=== PATIENT | female | born 1960 | race Caucasian/White ===

== ENCOUNTER 2019-10-04 05:35 | Inpatient (IN) ==
[2019-10-04] MEDS ORDERED: LORazepam 2 MG/1 ML VIAL ONE (08:45)
[2019-10-04] MEDS ORDERED: MORPHINE 4 MG/1 ML VIAL IV PRN (08:49)
[2019-10-04] MEDS ORDERED: ONDANSETRON 4 MG/2 ML VIAL IV PRN (08:49)
[2019-10-04] MEDS ORDERED: ALBUTEROL 2.5 MG/3 ML NEB RESP TX PRN ×2 (08:49)
[2019-10-04] MEDS ORDERED: LACTATED RINGERS 1,000 ML IV ONE (08:57)
[2019-10-04] MEDS ORDERED: LORazepam 2 MG/1 ML VIAL IV ONE (09:00)
[2019-10-04] MEDS ORDERED: NOREPINEPHRINE 4 MG/4 ML VIAL IV ONE (09:04)
[2019-10-04] MEDS ORDERED: SODIUM CHLORIDE 0.9% 1,000 ML IV ONE (09:05)
[2019-10-04] MEDS: NOREPINEPHRINE 8 MG in SODIUM CHLORIDE 0.9% 242 ML IV SCH ×2 (09:12→20:37)
[2019-10-04 09:25] LABS: Basophils % 0.3 % (0.0-0.8); Hematocrit 37.8 VOL% (35.7-47.0); Hemoglobin 12.2 GM/DL (12.0-16.0); Lymphocytes # 0.4 10*3/uL (1.4-4.0); Lymphocytes % 13.1 % (21.3-54.2); Mean Corpuscular HGB Conc 32.3 GM/DL (32-36); Mean Corpuscular Volume 83.3 FL (87-102); Mean Platelet Volume 11.2 FL (9.6-12.0); Monocytes % 11.5 % (1.7-12.7); Neutrophils % 75.1 % (38.7-73.9); Platelet Count 180 T/CUMM (130-400); Red Blood Count 4.54 MC/CUMM (3.8-5.5); Red Cell Distribution Width 13.8 % (9.3-17.3); White Blood Count 3.1 T/CUMM (4-12)
[2019-10-04 09:31] LABS: ABG Base Excess -6.6 MMOL/L (-2.5-2.5); ABG HCO3 19.1 MMOL/L (20-26); ABG Oxygen Saturation 99.8 % (95-100); ABG PCO2 47.2 MM HG (35-48); ABG PH 7.253 (7.35-7.45); ABG TCO2 18.7 MMOL/L (23-27); Pt O2 Delivery Device Ventilator
[2019-10-04 09:43] LABS: Albumin 3.2 G/DL (3.4-5.0); Calcium 8.6 MG/DL (8.5-10.1); Osmolality,Calculated 291.7 MOS/KG (273-304); Total Protein 6.3 G/DL (6.4-8.3)
[2019-10-04 10:16] LABS: Anisocytosis Slight; Band Neutrophils 27 % (0-10); Eosinophils 1 % (0-10); Lymphocytes 14 % (20-55); Macrocytosis Slight; Metamyelocytes 1 %; Platelet Estimate Normal; Segmented Neutrophils 45 % (50-85); Total Cells Counted 100
[2019-10-04] MEDS: LACTATED RINGERS 1,000 ML IV SCH ×3 (10:45→19:38)
[2019-10-04] MEDS ORDERED: INFLUENZA VIRUS VACCINE 0.5 ML SYRINGE IM ONE (10:54)
[2019-10-04] MEDS: PANTOPRAZOLE 40 MG VIAL IV SCH (10:57)
[2019-10-04] MEDS: ENOXAPARIN 40 MG/0.4 ML SYRINGE SUBCUT SCH (11:01)
[2019-10-04] MEDS: MIDAZOLAM 100 MG in SODIUM CHLORIDE 0.9% 80 ML IV PRN (11:44)
[2019-10-04] MEDS: POTASSIUM CHLORIDE RIDER 20 MEQ in PREMIX 1 EACH IV SCH ×3 (11:45→16:11)
[2019-10-04] MEDS: fentaNYL INJ 1,250 MCG in SODIUM CHLORIDE 0.9% 225 ML IV PRN (11:46)
[2019-10-04] MEDS: MAGNESIUM SULF RIDER 2 GM in PREMIX 1 EACH IV PRN ×2 (11:46→13:46)
[2019-10-04] MEDS: INSULIN REGULAR 100 UNIT/ML SUBCUT SCH ×3 (12:39→23:55)
[2019-10-04] MEDS: CLINDAMYCIN INJ 600 MG in PREMIX 1 EACH IV SCH ×2 (14:25→22:25)
[2019-10-04] MEDS: ALBUTEROL/IPRATROPIUM 3 ML NEB RESP TX SCH ×2 (14:47→20:12)
[2019-10-04] MEDS: LEVOFLOXACIN INJ 750 MG in PREMIX 1 EACH IV SCH (15:00)
[2019-10-04] MEDS: INSULIN GLARGINE 100 UNIT/ML SUBCUT SCH (15:05)
[2019-10-04] MEDS: ACETAMINOPHEN 325 MG TABLET PO PRN (16:09)
[2019-10-05] MEDS: ALBUTEROL/IPRATROPIUM 3 ML NEB RESP TX SCH ×4 (01:02→20:10)
[2019-10-05] MEDS: LACTATED RINGERS 1,000 ML IV SCH ×5 (01:24→23:47)
[2019-10-05 04:39] LABS: Basophils # 0.1 10*3/uL (0.0-0.2); Basophils % 0.5 % (0.0-0.8); Eosinophils % 0.3 % (0.00-10.9); Hematocrit 35.7 VOL% (35.7-47.0); Hemoglobin 11.4 GM/DL (12.0-16.0); Immature Granulocytes % 0.8 %; Immature Granulocytes Absolute 0.09 #; Lymphocytes # 1.2 10*3/uL (1.4-4.0); Mean Corpuscular HGB Conc 31.9 GM/DL (32-36); Mean Platelet Volume 10.9 FL (9.6-12.0); Monocytes % 5.8 % (1.7-12.7); Neutrophils % 81.6 % (38.7-73.9); Platelet Count 180 T/CUMM (130-400); Red Cell Distribution Width 14.3 % (9.3-17.3); White Blood Count 10.8 T/CUMM (4-12)
[2019-10-05 04:52] LABS: ABG Base Excess -2.3 MMOL/L (-2.5-2.5); ABG HCO3 22.5 MMOL/L (20-26); ABG Oxygen Saturation 98.2 % (95-100); ABG PCO2 44.7 MM HG (35-48); ABG PH 7.332 (7.35-7.45); ABG TCO2 21.3 MMOL/L (23-27); Allen Test Positive; Pt O2 Delivery Device Ventilator
[2019-10-05 04:56] LABS: Calcium 8.2 MG/DL (8.5-10.1); Osmolality,Calculated 289.3 MOS/KG (273-304)
[2019-10-05 05:16] LABS: Band Neutrophils 8 % (0-10); Hypochromasia 1+; Lymphocytes 16 % (20-55); Platelet Estimate Adequate; Segmented Neutrophils 72 % (50-85); Total Cells Counted 100
[2019-10-05 05:17] LABS: Macrocytosis Slight
[2019-10-05] MEDS: CLINDAMYCIN INJ 600 MG in PREMIX 1 EACH IV SCH ×3 (06:17→21:50)
[2019-10-05] MEDS: INSULIN REGULAR 100 UNIT/ML SUBCUT SCH ×4 (06:17→23:59)
[2019-10-05] MEDS: MIDAZOLAM 100 MG in SODIUM CHLORIDE 0.9% 80 ML IV PRN ×2 (06:27→23:47)
[2019-10-05] MEDS: PANTOPRAZOLE 40 MG VIAL IV SCH (09:16)
[2019-10-05] MEDS: CALCIUM (CARBONATE)/VITAMIN D 600 MG-400 UNIT TABLET PO SCH (09:16)
[2019-10-05] MEDS: ASPIRIN CHEW 81 MG TABLET PO SCH (09:16)
[2019-10-05] MEDS: ENOXAPARIN 40 MG/0.4 ML SYRINGE SUBCUT SCH (09:17)
[2019-10-05] MEDS: ATORVASTATIN 10 MG TABLET PO SCH (09:17)
[2019-10-05] MEDS: INSULIN GLARGINE 100 UNIT/ML SUBCUT SCH (09:17)
[2019-10-05 13:21] LABS: Allen Test Positive; Pt O2 Delivery Device Ventilator
[2019-10-05 13:24] LABS: ABG Base Excess 0.9 MMOL/L (-2.5-2.5); ABG HCO3 25.3 MMOL/L (20-26); ABG Oxygen Saturation 99.4 % (95-100); ABG PCO2 39.8 MM HG (35-48); ABG PH 7.414 (7.35-7.45)
[2019-10-05] MEDS: LEVOFLOXACIN INJ 750 MG in PREMIX 1 EACH IV SCH (14:19)
[2019-10-05] MEDS: NOREPINEPHRINE 8 MG in SODIUM CHLORIDE 0.9% 242 ML IV SCH (14:30)
[2019-10-05] MEDS ORDERED: DEXTROSE 10% 250 ML BAG IV PRN (17:38)
[2019-10-05] MEDS ORDERED: GLUCAGON 1 MG VIAL IM PRN (17:38)
[2019-10-06] MEDS: LACTATED RINGERS 1,000 ML IV SCH ×2 (01:10→11:07)
[2019-10-06] MEDS: ALBUTEROL/IPRATROPIUM 3 ML NEB RESP TX SCH ×4 (01:55→19:42)
[2019-10-06 04:40] LABS: Basophils % 0.4 % (0.0-0.8); Eosinophils # 0.1 10*3/uL (0.0-0.87); Eosinophils % 1.9 % (0.00-10.9); Hematocrit 28.7 VOL% (35.7-47.0); Immature Granulocytes % 2.2 %; Immature Granulocytes Absolute 0.15 #; Lymphocytes # 0.9 10*3/uL (1.4-4.0); Lymphocytes % 12.8 % (21.3-54.2); Mean Corpuscular HGB Conc 32.4 GM/DL (32-36); Mean Corpuscular Volume 83.7 FL (87-102); Mean Platelet Volume 11.1 FL (9.6-12.0); Neutrophils % 76.7 % (38.7-73.9); Red Blood Count 3.43 MC/CUMM (3.8-5.5); Red Cell Distribution Width 14.5 % (9.3-17.3); White Blood Count 6.8 T/CUMM (4-12)
[2019-10-06 04:42] LABS: Hemoglobin 9.3 GM/DL (12.0-16.0); Platelet Count 130 T/CUMM (130-400)
[2019-10-06 04:48] LABS: Allen Test Positive; Pt O2 Delivery Device Ventilator
[2019-10-06 04:49] LABS: ABG Base Excess 2.5 MMOL/L (-2.5-2.5); ABG HCO3 26.7 MMOL/L (20-26); ABG Oxygen Saturation 98.9 % (95-100); ABG PCO2 38.4 MM HG (35-48); ABG PH 7.448 (7.35-7.45); ABG TCO2 24.3 MMOL/L (23-27)
[2019-10-06 04:49] LABS: Albumin 2.3 G/DL (3.4-5.0); Bilirubin,Total 1.8 MG/DL (0.2-1.0); Calcium 8.6 MG/DL (8.5-10.1); Osmolality,Calculated 276.7 MOS/KG (273-304); Total Protein 5.6 G/DL (6.4-8.3)
[2019-10-06] MEDS: INSULIN REGULAR 100 UNIT/ML SUBCUT SCH ×3 (05:35→18:02)
[2019-10-06 05:53] LABS: Band Neutrophils 6 % (0-10); Eosinophils 2 % (0-10); Hypochromasia 1+; Lymphocytes 10 % (20-55); Macrocytosis Slight; Platelet Estimate Normal; Segmented Neutrophils 78 % (50-85); Total Cells Counted 100
[2019-10-06] MEDS: CLINDAMYCIN INJ 600 MG in PREMIX 1 EACH IV SCH ×3 (06:50→21:12)
[2019-10-06] MEDS: PANTOPRAZOLE 40 MG VIAL IV SCH (08:19)
[2019-10-06] MEDS: ENOXAPARIN 40 MG/0.4 ML SYRINGE SUBCUT SCH (08:19)
[2019-10-06] MEDS: ASPIRIN CHEW 81 MG TABLET PO SCH (08:19)
[2019-10-06] MEDS: CALCIUM (CARBONATE)/VITAMIN D 600 MG-400 UNIT TABLET PO SCH (08:19)
[2019-10-06] MEDS: ATORVASTATIN 10 MG TABLET PO SCH (08:19)
[2019-10-06] MEDS: INSULIN GLARGINE 100 UNIT/ML SUBCUT SCH (08:19)
[2019-10-06] MEDS: MAGNESIUM SULF RIDER 2 GM in PREMIX 1 EACH IV PRN (08:27)
[2019-10-06] MEDS: DOCUSATE SODIUM 100 MG/10 ML UDCUP PO SCH ×2 (12:07→21:10)
[2019-10-06] MEDS: NOREPINEPHRINE 8 MG in SODIUM CHLORIDE 0.9% 242 ML IV SCH (13:49)
[2019-10-06] MEDS: LEVOFLOXACIN INJ 750 MG in PREMIX 1 EACH IV SCH (14:39)
[2019-10-06] MEDS: fentaNYL INJ 1,250 MCG in SODIUM CHLORIDE 0.9% 225 ML IV PRN (16:32)
[2019-10-06] MEDS: ACETAMINOPHEN 325 MG TABLET PO PRN (21:10)
[2019-10-07] MEDS: ALBUTEROL/IPRATROPIUM 3 ML NEB RESP TX SCH ×4 (00:20→18:50)
[2019-10-07] MEDS: INSULIN REGULAR 100 UNIT/ML SUBCUT SCH ×4 (00:22→17:22)
[2019-10-07] MEDS: MIDAZOLAM 100 MG in SODIUM CHLORIDE 0.9% 80 ML IV PRN (03:15)
[2019-10-07 04:01] LABS: Allen Test Positive; Pt O2 Delivery Device Ventilator
[2019-10-07 04:03] LABS: ABG Base Excess 3.1 MMOL/L (-2.5-2.5); ABG HCO3 27.2 MMOL/L (20-26); ABG Oxygen Saturation 99.3 % (95-100); ABG PCO2 37.3 MM HG (35-48); ABG PH 7.466 (7.35-7.45); ABG TCO2 24.5 MMOL/L (23-27)
[2019-10-07 04:36] LABS: Basophils % 0.3 % (0.0-0.8); Eosinophils # 0.3 10*3/uL (0.0-0.87); Eosinophils % 3.4 % (0.00-10.9); Hematocrit 28.4 VOL% (35.7-47.0); Immature Granulocytes % 0.5 %; Immature Granulocytes Absolute 0.05 #; Lymphocytes # 1.2 10*3/uL (1.4-4.0); Lymphocytes % 12.5 % (21.3-54.2); Mean Corpuscular HGB Conc 31.7 GM/DL (32-36); Mean Platelet Volume 10.2 FL (9.6-12.0); Monocytes % 7.4 % (1.7-12.7); Neutrophils % 75.9 % (38.7-73.9); Platelet Count 135 T/CUMM (130-400); Red Blood Count 3.38 MC/CUMM (3.8-5.5); Red Cell Distribution Width 14.6 % (9.3-17.3); White Blood Count 9.4 T/CUMM (4-12)
[2019-10-07 04:51] LABS: Albumin 2.3 G/DL (3.4-5.0); Calcium 8.1 MG/DL (8.5-10.1); Osmolality,Calculated 280.5 MOS/KG (273-304); Total Protein 5.9 G/DL (6.4-8.3)
[2019-10-07 04:55] LABS: Atypical Lymphocytes Few; Hypochromasia 1+; Lymphocytes 14 % (20-55); Segmented Neutrophils 78 % (50-85); Total Cells Counted 100
[2019-10-07 04:56] LABS: Microcytosis Slight; Platelet Estimate Adequate
[2019-10-07 05:22] LABS: Prealbumin 8.1 MG/DL (20-40)
[2019-10-07] MEDS: CLINDAMYCIN INJ 600 MG in PREMIX 1 EACH IV SCH ×3 (05:45→21:03)
[2019-10-07] MEDS: MAGNESIUM SULF RIDER 2 GM in PREMIX 1 EACH IV PRN (06:19)
[2019-10-07] MEDS: DOCUSATE SODIUM 100 MG/10 ML UDCUP PO SCH ×2 (08:47→20:43)
[2019-10-07] MEDS: PANTOPRAZOLE 40 MG VIAL IV SCH (08:47)
[2019-10-07] MEDS: INSULIN GLARGINE 100 UNIT/ML SUBCUT SCH (08:47)
[2019-10-07] MEDS: NOREPINEPHRINE 8 MG in SODIUM CHLORIDE 0.9% 242 ML IV SCH (08:48)
[2019-10-07] MEDS: ASPIRIN CHEW 81 MG TABLET PO SCH (08:48)
[2019-10-07] MEDS: CALCIUM (CARBONATE)/VITAMIN D 600 MG-400 UNIT TABLET PO SCH (08:48)
[2019-10-07] MEDS: ATORVASTATIN 10 MG TABLET PO SCH (08:48)
[2019-10-07] MEDS: ENOXAPARIN 40 MG/0.4 ML SYRINGE SUBCUT SCH (08:49)
[2019-10-07] MEDS: LEVOFLOXACIN INJ 750 MG in PREMIX 1 EACH IV SCH (14:42)
[2019-10-07] MEDS ORDERED: cefTRIAXone 1,000 MG in SYRINGE 1 EACH IV SCH (16:00)
[2019-10-07] MEDS: DEXMEDETOMIDINE 200 MCG in SODIUM CHLORIDE 0.9% 48 ML IV PRN ×2 (17:04→22:10)
[2019-10-08] MEDS: INSULIN REGULAR 100 UNIT/ML SUBCUT SCH ×4 (00:25→18:43)
[2019-10-08] MEDS: ALBUTEROL/IPRATROPIUM 3 ML NEB RESP TX SCH ×4 (01:14→20:00)
[2019-10-08] MEDS: DEXMEDETOMIDINE 200 MCG in SODIUM CHLORIDE 0.9% 48 ML IV PRN ×5 (02:11→22:56)
[2019-10-08 04:43] LABS: ABG Base Excess 2.6 MMOL/L (-2.5-2.5); ABG HCO3 26.7 MMOL/L (20-26); ABG Oxygen Saturation 98.1 % (95-100); ABG PCO2 44.7 MM HG (35-48); ABG PH 7.402 (7.35-7.45); ABG TCO2 24.8 MMOL/L (23-27); Allen Test Positive; Pt O2 Delivery Device Ventilator
[2019-10-08 05:03] LABS: Basophils % 0.4 % (0.0-0.8); Eosinophils # 0.2 10*3/uL (0.0-0.87); Eosinophils % 1.9 % (0.00-10.9); Hemoglobin 9.3 GM/DL (12.0-16.0); Immature Granulocytes % 1.6 %; Immature Granulocytes Absolute 0.13 #; Lymphocytes # 0.7 10*3/uL (1.4-4.0); Lymphocytes % 8.9 % (21.3-54.2); Mean Corpuscular Volume 83.6 FL (87-102); Mean Platelet Volume 10.7 FL (9.6-12.0); Monocytes % 10.1 % (1.7-12.7); Neutrophils % 77.1 % (38.7-73.9); Platelet Count 156 T/CUMM (130-400); Red Blood Count 3.59 MC/CUMM (3.8-5.5); Red Cell Distribution Width 14.2 % (9.3-17.3)
[2019-10-08 05:26] LABS: Band Neutrophils 1 % (0-10); Eosinophils 7 % (0-10); Lymphocytes 10 % (20-55); Segmented Neutrophils 70 % (50-85); Total Cells Counted 100
[2019-10-08 05:27] LABS: Hypochromasia 1+; Microcytosis Slight; Platelet Estimate Adequate
[2019-10-08 05:46] LABS: Calcium 8.5 MG/DL (8.5-10.1); Osmolality,Calculated 276.8 MOS/KG (273-304)
[2019-10-08] MEDS: CLINDAMYCIN INJ 600 MG in PREMIX 1 EACH IV SCH (05:51)
[2019-10-08] MEDS: PANTOPRAZOLE 40 MG VIAL IV SCH (09:03)
[2019-10-08] MEDS: DOCUSATE SODIUM 100 MG/10 ML UDCUP PO SCH ×2 (09:03→21:07)
[2019-10-08] MEDS: INSULIN GLARGINE 100 UNIT/ML SUBCUT SCH (09:06)
[2019-10-08] MEDS: ENOXAPARIN 40 MG/0.4 ML SYRINGE SUBCUT SCH (09:06)
[2019-10-08] MEDS: ATORVASTATIN 10 MG TABLET PO SCH (09:07)
[2019-10-08] MEDS: CALCIUM (CARBONATE)/VITAMIN D 600 MG-400 UNIT TABLET PO SCH (09:07)
[2019-10-08] MEDS: ASPIRIN CHEW 81 MG TABLET PO SCH (09:07)
[2019-10-08] MEDS ORDERED: VANCOMYCIN INJ 1,500 MG in SODIUM CHLORIDE 0.9% 500 ML IV ONE (13:30)
[2019-10-08] MEDS: PIPERACILLIN/TAZOBACTAM 3,375 MG in SODIUM CHLORIDE 0.9% 100 ML IV SCH ×2 (15:33→21:07)
[2019-10-08] MEDS: methylPREDNISolone SOD SUC 40 MG/1 ML VIAL IV SCH ×2 (16:00→21:08)
[2019-10-08] MEDS: levETIRAcetam 500 MG TABLET PO SCH (21:07)
[2019-10-09] MEDS: ALBUTEROL/IPRATROPIUM 3 ML NEB RESP TX SCH ×4 (00:20→19:20)
[2019-10-09] MEDS: INSULIN REGULAR 100 UNIT/ML SUBCUT SCH ×5 (00:49→21:50)
[2019-10-09] MEDS: VANCOMYCIN INJ 1,000 MG in SODIUM CHLORIDE 0.9% 250 ML IV SCH ×2 (02:31→13:57)
[2019-10-09] MEDS: DEXMEDETOMIDINE 200 MCG in SODIUM CHLORIDE 0.9% 48 ML IV PRN ×2 (02:34→08:33)
[2019-10-09 04:06] LABS: ABG Base Excess 1.3 MMOL/L (-2.5-2.5); ABG HCO3 25.8 MMOL/L (20-26); ABG Oxygen Saturation 96.7 % (95-100); ABG PCO2 40.4 MM HG (35-48); ABG PH 7.423 (7.35-7.45); ABG PO2 95.6 MM HG (80-95); Allen Test Positive; Pt O2 Delivery Device Ventilator
[2019-10-09 04:15] LABS: Basophils % 0.5 % (0.0-0.8); Hematocrit 30.6 VOL% (35.7-47.0); Hemoglobin 9.9 GM/DL (12.0-16.0); Immature Granulocytes % 6.4 %; Immature Granulocytes Absolute 0.41 #; Lymphocytes # 0.7 10*3/uL (1.4-4.0); Lymphocytes % 10.9 % (21.3-54.2); Mean Corpuscular HGB Conc 32.4 GM/DL (32-36); Mean Corpuscular Volume 81.2 FL (87-102); Mean Platelet Volume 10.6 FL (9.6-12.0); Monocytes % 4.5 % (1.7-12.7); Neutrophils % 77.7 % (38.7-73.9); Platelet Count 191 T/CUMM (130-400); Red Blood Count 3.77 MC/CUMM (3.8-5.5); Red Cell Distribution Width 13.6 % (9.3-17.3); White Blood Count 6.4 T/CUMM (4-12)
[2019-10-09 04:29] LABS: Calcium 9.1 MG/DL (8.5-10.1); Osmolality,Calculated 283.8 MOS/KG (273-304)
[2019-10-09 04:42] LABS: Band Neutrophils 5 % (0-10); Lymphocytes 9 % (20-55); Metamyelocytes 4 %; Myelocytes 1 %; Segmented Neutrophils 71 % (50-85); Total Cells Counted 100
[2019-10-09 04:43] LABS: Anisocytosis 1+; Macrocytosis 1+; Platelet Estimate Normal
[2019-10-09] MEDS: PIPERACILLIN/TAZOBACTAM 3,375 MG in SODIUM CHLORIDE 0.9% 100 ML IV SCH ×3 (05:32→21:51)
[2019-10-09] MEDS: methylPREDNISolone SOD SUC 40 MG/1 ML VIAL IV SCH ×3 (06:15→21:51)
[2019-10-09] MEDS: PANTOPRAZOLE 40 MG VIAL IV SCH (08:21)
[2019-10-09] MEDS: CALCIUM (CARBONATE)/VITAMIN D 600 MG-400 UNIT TABLET PO SCH (08:21)
[2019-10-09] MEDS: INSULIN GLARGINE 100 UNIT/ML SUBCUT SCH (08:22)
[2019-10-09] MEDS: ASPIRIN CHEW 81 MG TABLET PO SCH (08:22)
[2019-10-09] MEDS: ENOXAPARIN 40 MG/0.4 ML SYRINGE SUBCUT SCH (08:22)
[2019-10-09] MEDS: levETIRAcetam 500 MG TABLET PO SCH ×2 (08:22→21:50)
[2019-10-09] MEDS: DOCUSATE SODIUM 100 MG/10 ML UDCUP PO SCH ×2 (08:22→21:24)
[2019-10-09] MEDS: ATORVASTATIN 10 MG TABLET PO SCH (08:37)
[2019-10-09] MEDS ORDERED: DEXTROSE 50% 25 GM/50 ML VIAL IV PRN (19:20)
[2019-10-09] MEDS ORDERED: GLUCAGON 1 MG VIAL IM PRN (19:20)
[2019-10-09] MEDS ORDERED: INSULIN REGULAR 100 UNIT/ML SUBCUT SCH (21:00)
[2019-10-10] MEDS: ALBUTEROL/IPRATROPIUM 3 ML NEB RESP TX SCH ×4 (00:38→19:59)
[2019-10-10] MEDS: VANCOMYCIN INJ 1,000 MG in SODIUM CHLORIDE 0.9% 250 ML IV SCH ×2 (01:50→16:26)
[2019-10-10] MEDS: PIPERACILLIN/TAZOBACTAM 3,375 MG in SODIUM CHLORIDE 0.9% 100 ML IV SCH ×2 (04:40→12:13)
[2019-10-10 05:06] LABS: Basophils % 0.2 % (0.0-0.8); Hematocrit 31.1 VOL% (35.7-47.0); Hemoglobin 9.9 GM/DL (12.0-16.0); Immature Granulocytes % 6.5 %; Immature Granulocytes Absolute 0.55 #; Lymphocytes # 1.1 10*3/uL (1.4-4.0); Lymphocytes % 12.6 % (21.3-54.2); Mean Corpuscular HGB Conc 31.8 GM/DL (32-36); Mean Platelet Volume 10.2 FL (9.6-12.0); Neutrophils % 71.7 % (38.7-73.9); Platelet Count 247 T/CUMM (130-400); Red Blood Count 3.84 MC/CUMM (3.8-5.5); Red Cell Distribution Width 13.6 % (9.3-17.3); White Blood Count 8.5 T/CUMM (4-12)
[2019-10-10 05:35] LABS: Band Neutrophils 7 % (0-10); Hypochromasia 1+; Lymphocytes 14 % (20-55); Microcytosis Slight; Platelet Estimate Normal; Segmented Neutrophils 71 % (50-85); Total Cells Counted 100
[2019-10-10 05:40] LABS: Albumin 2.5 G/DL (3.4-5.0); Bilirubin,Total 0.5 MG/DL (0.2-1.0); Calcium 9.3 MG/DL (8.5-10.1); Osmolality,Calculated 291.1 MOS/KG (273-304); Prealbumin 10.5 MG/DL (20-40); Total Protein 6.6 G/DL (6.4-8.3)
[2019-10-10] MEDS: methylPREDNISolone SOD SUC 40 MG/1 ML VIAL IV SCH ×3 (05:46→17:03)
[2019-10-10] MEDS: ENOXAPARIN 40 MG/0.4 ML SYRINGE SUBCUT SCH (08:50)
[2019-10-10] MEDS: INSULIN GLARGINE 100 UNIT/ML SUBCUT SCH (08:50)
[2019-10-10] MEDS: INSULIN REGULAR 100 UNIT/ML SUBCUT SCH ×4 (08:51→21:20)
[2019-10-10] MEDS: ASPIRIN CHEW 81 MG TABLET PO SCH (08:52)
[2019-10-10] MEDS: CALCIUM (CARBONATE)/VITAMIN D 600 MG-400 UNIT TABLET PO SCH (08:52)
[2019-10-10] MEDS: ATORVASTATIN 10 MG TABLET PO SCH (08:53)
[2019-10-10] MEDS: levETIRAcetam 500 MG TABLET PO SCH ×2 (08:53→21:20)
[2019-10-10] MEDS: PANTOPRAZOLE 40 MG VIAL IV SCH (08:53)
[2019-10-10] MEDS: DOCUSATE SODIUM 100 MG/10 ML UDCUP PO SCH (09:20)
[2019-10-10] MEDS: POTASSIUM CHLORIDE 20 MEQ TABLET PO PRN ×4 (10:30→21:50)
[2019-10-11] MEDS: ALBUTEROL/IPRATROPIUM 3 ML NEB RESP TX SCH ×4 (00:40→19:49)
[2019-10-11] MEDS: VANCOMYCIN INJ 1,000 MG in SODIUM CHLORIDE 0.9% 250 ML IV SCH ×3 (01:55→18:04)
[2019-10-11] MEDS: methylPREDNISolone SOD SUC 40 MG/1 ML VIAL IV SCH (04:58)
[2019-10-11 05:09] LABS: Basophils % 0.3 % (0.0-0.8); Hematocrit 33.7 VOL% (35.7-47.0); Hemoglobin 10.5 GM/DL (12.0-16.0); Immature Granulocytes % 6.9 %; Immature Granulocytes Absolute 0.55 #; Lymphocytes # 1.5 10*3/uL (1.4-4.0); Lymphocytes % 18.6 % (21.3-54.2); Mean Corpuscular HGB Conc 31.2 GM/DL (32-36); Mean Corpuscular Volume 83.6 FL (87-102); Mean Platelet Volume 9.6 FL (9.6-12.0); Monocytes % 11.7 % (1.7-12.7); Neutrophils % 62.5 % (38.7-73.9); Platelet Count 264 T/CUMM (130-400); Red Blood Count 4.03 MC/CUMM (3.8-5.5); Red Cell Distribution Width 13.4 % (9.3-17.3); White Blood Count 7.9 T/CUMM (4-12)
[2019-10-11 05:48] LABS: Albumin 2.7 G/DL (3.4-5.0); Bilirubin,Total 0.8 MG/DL (0.2-1.0); Calcium 9.1 MG/DL (8.5-10.1); Osmolality,Calculated 279.7 MOS/KG (273-304); Total Protein 6.9 G/DL (6.4-8.3)
[2019-10-11 05:56] LABS: Atypical Lymphocytes Few; Band Neutrophils 4 % (0-10); Lymphocytes 22 % (20-55); Segmented Neutrophils 62 % (50-85); Total Cells Counted 100
[2019-10-11 05:57] LABS: Hypochromasia 1+; Microcytosis 1+; Platelet Estimate Normal; Polychromasia Slight
[2019-10-11] MEDS: POTASSIUM CHLORIDE 20 MEQ TABLET PO PRN ×4 (06:46→15:34)
[2019-10-11] MEDS: INSULIN GLARGINE 100 UNIT/ML SUBCUT SCH ×2 (08:31→14:16)
[2019-10-11] MEDS: INSULIN REGULAR 100 UNIT/ML SUBCUT SCH ×4 (08:31→21:37)
[2019-10-11] MEDS: ATORVASTATIN 10 MG TABLET PO SCH (08:32)
[2019-10-11] MEDS: ENOXAPARIN 40 MG/0.4 ML SYRINGE SUBCUT SCH (08:32)
[2019-10-11] MEDS: CALCIUM (CARBONATE)/VITAMIN D 600 MG-400 UNIT TABLET PO SCH (08:32)
[2019-10-11] MEDS: ASPIRIN CHEW 81 MG TABLET PO SCH (08:36)
[2019-10-11] MEDS: levETIRAcetam 500 MG TABLET PO SCH ×2 (08:36→21:17)
[2019-10-11] MEDS: PANTOPRAZOLE 40 MG VIAL IV SCH (08:37)
[2019-10-11] MEDS: predniSONE 20 MG TABLET PO SCH (21:17)
[2019-10-12] MEDS: ALBUTEROL/IPRATROPIUM 3 ML NEB RESP TX SCH ×4 (00:44→20:37)
[2019-10-12] MEDS: VANCOMYCIN INJ 1,000 MG in SODIUM CHLORIDE 0.9% 250 ML IV SCH ×3 (03:14→18:05)
[2019-10-12 06:34] LABS: Basophils % 0.2 % (0.0-0.8); Hemoglobin 11.4 GM/DL (12.0-16.0); Immature Granulocytes % 2.4 %; Immature Granulocytes Absolute 0.24 #; Lymphocytes # 1.1 10*3/uL (1.4-4.0); Mean Corpuscular HGB Conc 32.6 GM/DL (32-36); Mean Corpuscular Volume 79.9 FL (87-102); Mean Platelet Volume 9.9 FL (9.6-12.0); Monocytes % 5.6 % (1.7-12.7); Neutrophils % 80.8 % (38.7-73.9); Platelet Count 273 T/CUMM (130-400); Red Blood Count 4.38 MC/CUMM (3.8-5.5); Red Cell Distribution Width 13.7 % (9.3-17.3); White Blood Count 10.2 T/CUMM (4-12)
[2019-10-12 06:53] LABS: Albumin 2.9 G/DL (3.4-5.0); Bilirubin,Total 1.6 MG/DL (0.2-1.0); Calcium 8.7 MG/DL (8.5-10.1); Osmolality,Calculated 276.1 MOS/KG (273-304)
[2019-10-12] MEDS: CALCIUM (CARBONATE)/VITAMIN D 600 MG-400 UNIT TABLET PO SCH (09:43)
[2019-10-12] MEDS: INSULIN REGULAR 100 UNIT/ML SUBCUT SCH ×4 (09:43→21:03)
[2019-10-12] MEDS: INSULIN GLARGINE 100 UNIT/ML SUBCUT SCH (09:43)
[2019-10-12] MEDS: levETIRAcetam 500 MG TABLET PO SCH ×2 (09:43→21:04)
[2019-10-12] MEDS: ASPIRIN CHEW 81 MG TABLET PO SCH (09:43)
[2019-10-12] MEDS: PANTOPRAZOLE 40 MG TABLET PO SCH (09:44)
[2019-10-12] MEDS: ENOXAPARIN 40 MG/0.4 ML SYRINGE SUBCUT SCH (09:44)
[2019-10-12] MEDS: ATORVASTATIN 10 MG TABLET PO SCH (09:44)
[2019-10-12] MEDS: predniSONE 20 MG TABLET PO SCH ×2 (09:44→21:04)
[2019-10-13] MEDS: ALBUTEROL/IPRATROPIUM 3 ML NEB RESP TX SCH ×4 (01:57→19:34)
[2019-10-13] MEDS: VANCOMYCIN INJ 1,000 MG in SODIUM CHLORIDE 0.9% 250 ML IV SCH ×3 (04:18→17:18)
[2019-10-13] MEDS: INSULIN REGULAR 100 UNIT/ML SUBCUT SCH ×4 (08:55→21:21)
[2019-10-13] MEDS: PANTOPRAZOLE 40 MG TABLET PO SCH (08:56)
[2019-10-13] MEDS: INSULIN GLARGINE 100 UNIT/ML SUBCUT SCH (08:56)
[2019-10-13] MEDS: CALCIUM (CARBONATE)/VITAMIN D 600 MG-400 UNIT TABLET PO SCH (08:56)
[2019-10-13] MEDS: levETIRAcetam 500 MG TABLET PO SCH ×2 (08:56→21:21)
[2019-10-13] MEDS: ATORVASTATIN 10 MG TABLET PO SCH (08:56)
[2019-10-13] MEDS: ASPIRIN CHEW 81 MG TABLET PO SCH (08:56)
[2019-10-13] MEDS: ENOXAPARIN 40 MG/0.4 ML SYRINGE SUBCUT SCH (08:56)
[2019-10-13] MEDS: predniSONE 20 MG TABLET PO SCH ×2 (08:56→21:21)
[2019-10-14] MEDS: ALBUTEROL/IPRATROPIUM 3 ML NEB RESP TX SCH ×3 (00:35→13:45)
[2019-10-14] MEDS: VANCOMYCIN INJ 1,000 MG in SODIUM CHLORIDE 0.9% 250 ML IV SCH ×2 (02:28→10:20)
[2019-10-14] MEDS: CALCIUM (CARBONATE)/VITAMIN D 600 MG-400 UNIT TABLET PO SCH (09:08)
[2019-10-14] MEDS: predniSONE 20 MG TABLET PO SCH (09:09)
[2019-10-14] MEDS: ATORVASTATIN 10 MG TABLET PO SCH (09:09)
[2019-10-14] MEDS: ASPIRIN CHEW 81 MG TABLET PO SCH (09:09)
[2019-10-14] MEDS: levETIRAcetam 500 MG TABLET PO SCH (09:09)
[2019-10-14] MEDS: INSULIN GLARGINE 100 UNIT/ML SUBCUT SCH (09:09)
[2019-10-14] MEDS: ENOXAPARIN 40 MG/0.4 ML SYRINGE SUBCUT SCH (09:09)
[2019-10-14] MEDS: PANTOPRAZOLE 40 MG TABLET PO SCH (09:09)
[2019-10-14] MEDS: INSULIN REGULAR 100 UNIT/ML SUBCUT SCH ×2 (09:10→13:34)
[2019-10-14 13:17] VITALS: BP 112/71
== END 2019-10-14 16:16 | disposition home or self-care (01) | DRG 720 ==
LOC: N.CC 08:06 → SUATTDRO 08:06 → N.5E 10-11 15:55
PROVIDERS: ADMIT Family Medicine; ATTEND Internal Medicine